=== PATIENT | male | born 1965 | race Caucasian/White ===

== ENCOUNTER 2020-04-26 12:36 | Inpatient (IN) | payer SELFPAY ==
[2020-04-26 13:01] VITALS: BP 148/106; PULSE 91; RESP 18; TEMP 36.6; O2SAT 98; BMI 20.6
[2020-04-26 15:33] LABS: Amphetamines Screen Urine Negative (Negative); Barbiturates Screen Urine Negative (Negative); Benzodiazepines Screen Urine Negative (Negative); Cocaine Screen Urine Negative (Negative); Opiate Screen Urine Negative (Negative); PCP Screen Urine Negative (Negative); THC Screen Urine Negative (Negative)
[2020-04-26] MEDS: folic acid 1 MG, multivitamin inj 10 ML, thiamine 100 MG in sodium chloride 0.9% 1,000 ML 252.8 MG IV (15:34)
[2020-04-26 15:36] LABS: Basophils % 0.6 %; Eosinophils % 0.3 %; Hemoglobin 16.6 g/dL (11.7-16.6); Lymphocytes # 1.6 10^3/uL (0.8-4.8); Lymphocytes % 23.7 %; Mean Corpuscular HGB Conc 33.2 g/dL (30.0-36.0); Mean Corpuscular Hemoglobin 32.5 pg (28.0-34.0); Mean Platelet Volume 11.2 fL (7.4-10.4); Monocytes # 0.4 10^3/uL (0.2-0.9); Monocytes % 6.1 %; Neutrophils # 4.67 10^3/uL (1.8-7.7); Neutrophils % 69.2 %; Nucleated Red Blood Cells % 0 %; Platelet Count 147 10^3/cmm (130-400); White Blood Count 6.8 10^3/uL (4.0-10.0)
[2020-04-26 15:37] LABS: Add Urine Microscopic? YES; Bilirubin Urine Neg (NEGATIVE); Blood Urine 2+ (Negative); Glucose Urine UA Norm (Normal); Ketones Urine 1+ (Negative); Leukocyte Esterase Urine Negative (Negative); Nitrate Urine Negative (Negative); Protein Urine Neg (Negative); Urine Appearance Clear (CLEAR); Urine Color Yellow (Yellow); Urobilinogen Urine 1 mg/dL (Negative); pH Urine 7 (5-7)
[2020-04-26 15:38] LABS: RBC Urine 25-40 /hpf (0-2)
[2020-04-26 15:39] LABS: Add Urine Culture? Yes; Bacteria Urine TRACE; Mucus Urine TRACE; Squamous Epithelial Cell Urine 0-4 (0-5); Transitional Epi Cells Urine 0-4 /hpf; WBC Urine 0-4 /hpf (0-5)
[2020-04-26 15:58] LABS: Alanine Aminotransferase 18 U/L (0-41); Albumin Level 4.1 g/dL (3.5-5.2); Alkaline Phosphatase 118 IU/L (40-130); Aspartate Amino Transferase 30 U/L (0-40); Blood Urea Nitrogen 17 mg/dL (6-20); Carbon Dioxide 26 mmol/L (22-29); Chloride 100 mmol/L (98-107); Globulin 2.7 g/dL (1.3-4.6); Glomerular Filtration Rate 140.9 mL/min (90-130); Glucose 114 mg/dL (65-115); Lipase 24 U/L (13-60); Osmolality Calculated 283 mOsm/kg (285-295); Sodium 138 mmol/L (136-145); Total Bilirubin 0.8 mg/dL (0.15-1.2); Total Protein 6.8 g/dL (6.6-8.7)
--- NOTE | 2020-04-26 15:59 | ED_ITS ---
HPI - Alcohol General: Chief Complaint: Alcohol Stated Complaint: detox Time Seen by Provider: 04/26/20 14:28 Source: patient Mode of arrival: ambulatory Limitations: no limitations History of Present Illness: HPI narrative: Patient is a chronic alcoholic and drinks fireball all day every day according to him. He states that he however wishes to quit alcohol and would like some help with that. He has quit cold turkey and his last drink was around 2 AM this morning. He is not having symptoms that he thinks are secondary to withdrawal, he is having tremors, nausea, vomiting, abdominal pain. I just before I saw him he had a single episode of watery stools. MD complaint: alcohol withdrawal, alcohol dependence and desires rehab Last drink: Hours (ago) (at 0200) Chronic alcohol use: Yes Associated symptoms: Reports abdominal pain, depression, nausea and vomiting; Deny diaphoresis, hematemesis, involuntary movements, melena, seizure-like activity, suicidal ideation or syncope Treatments prior to arrival: none Review of Systems General: Reports: 10 or more systems reviewed and unremarkable except in HPI and below Const: Denies: diaphoresis Eyes: Denies: change in vision or blurry vision ENMT: Denies: throat pain, enlarged tonsils, odynophagia, hoarseness, mouth pain or swelling of lips/tongue Card: Denies: syncope Resp: Denies: dyspnea, productive cough or non-productive cough GI: Reports: abdominal pain, nausea and vomiting; Denies: hematemesis or melena : Denies: flank pain, dysuria, urinary frequency, urinary urgency or urinary hesitancy Musc: Denies: neck pain, back pain or extremity swelling Skin/Breast: Denies: rash, pruritus or erythema Neuro: Denies: seizure-like activity or involuntary movements Psych: Reports: depression; Denies: suicidal ideation Endo: Denies: polyuria, polydipsia or tired all the time Physical Exam Const: COMMON NORMALS: no acute distress, average body habitus, patient oriented x3, no limitations, healthy appearing, alert and well nourished HENMT: COMMON NORMALS: normocephalic, atraumatic and moist oral mucous membranes HEAD & SCALP: normocephalic and atraumatic Neck/C-Spine: COMMON NORMALS: no meningeal signs and no JVD Resp: COMMON NORMALS: normal respiratory effort, No retractions, No use of accessory muscles, clear to auscultation bilaterally and percussion normal AUSCULTATION: clear to auscultation bilaterally PERCUSSION: percussion normal Cardio: COMMON NORMALS: no JVD, regular rate, regular rhythm, S1 normal heart sound present, S2 normal heart sound present, No gallops present (Cardio), No clicks present (Cardio), No murmurs present (Cardio), No rub (Cardio) and Peripheral pulses 2+ throughout RATE: regular rate RHYTHM: regular rhythm HEART SOUNDS: S1 normal heart sound present and S2 normal heart sound present PERIPHERAL PULSES: Peripheral pulses 2+ throughout GI: COMMON NORMALS: Normal to inspection, nondistended, normoactive bowel sounds present, Soft to palpation, non-tender, No hepatosplenomegaly present, no masses and no bruits PALPATION: Yes Soft to palpation and Yes No hepatosplenomegaly present Extremity: COMMON NORMALS: normal to inspection, full ROM, capillary refill normal, no calf tenderness and no pedal edema Neuro: COMMON NORMALS: patient oriented x3 SENSORIUM/ORIENTATION: Yes alert MENINGEAL SIGNS: Yes no meningeal signs Skin: COMMON NORMALS: no rashes or lesions noted, no wounds, turgor normal, no jaundice, no petechiae and no mottling GENERAL SKIN EXAM: no rashes or lesions noted and turgor normal Course ED course: 54-year-old alcoholic gentleman who presents to the emergency department wanting assistance with alcohol abuse. He was medically cleared. No issues in the ED. He was anxious in the ED but otherwise, no issues. He calmed down after he received ativan. Consultations: Consultation #1: Dr. Bryant, Psychiatrist, he kindly accepted the patient to his service Vital Signs: Vital signs: Vital Signs Temperature 97.9 F 04/26/20 13:01 Pulse Rate 99 04/26/20 19:47 Respiratory Rate 18 04/26/20 19:47 Blood Pressure 166/96 04/26/20 19:47 Pulse Oximetry 96 04/26/20 19:47 MDM - Alcohol MDM Narrative: Medical decision making narrative: 54 year old male patient who is an alcoholic and quite drinking early this morning. He was anxious, but not violent. He was medically cleared and admitted to psych for further evaluation. Medical Records: Attestation: I reviewed the patient's medical records. Lab Data: Attestation: I reviewed the patient's lab results. Labs: Lab Results 04/26/20 04/26/20 04/26/20 Range/Units 15:06 15:06 15:20 WBC 6.8 (4.0-10.0) 10^3/ uL RBC 5.10 (4.1-5.3) 10^6/u L Hgb 16.6 (11.7-16.6) g/dL Hct 50.0 (42.0-52.0) % MCV 98.0 H (80-94) fL MCH 32.5 (28.0-34.0) pg MCHC 33.2 (30.0-36.0) g/dL RDW 12.0 L (12.1-15.1) % Plt Count 147 (130-400) 10^3/c mm MPV 11.2 H (7.4-10.4) fL Neut % (Auto) 69.2 % Lymph % (Auto) 23.7 % Cocke % (Auto) 6.1 % Eos % (Auto) 0.3 % Baso % (Auto) 0.6 % Neut # (Auto) 4.67 (1.8-7.7) 10^3/u L Lymph # (Auto) 1.6 (0.8-4.8) 10^3/u L Cocke # (Auto) 0.4 (0.2-0.9) 10^3/u L Eos # (Auto) 0.0 (0.0-0.8) 10^3/u L Baso # (Auto) 0.0 (0.0-0.1) 10^3/u L Nucleated RBC % (a uto) 0 % Nucleated RBCs # 0.0 /100WBC Sodium (136-145) mmol/L Potassium (3.5-5.1) mmol/L Chloride (98-107) mmol/L Carbon Dioxide (22-29) mmol/L Anion Gap (5-19) BUN (6-20) mg/dL Creatinine (0.7-1.2) mg/dL GFR Calculation (90-130) mL/min Glucose (65-115) mg/dL Calculated Osmolal ity (285-295) mOsm/k g Calcium (8.5-10.5) mg/dL Total Bilirubin (0.15-1.2) mg/dL AST (0-40) U/L ALT (0-41) U/L Alkaline Phosphata se (40-130) IU/L Total Protein (6.6-8.7) g/dL Albumin (3.5-5.2) g/dL Globulin (1.3-4.6) g/dL Lipase (13-60) U/L Urine Color Yellow (Yellow) Urine Appearance Clear (CLEAR) Urine pH 7 (5-7) Ur Specific Gravit y 1.010 (1.005-1.030) Urine Protein Neg (Negative) Urine Glucose (UA) Norm (Normal) Urine Ketones 1+ H (Negative) Urine Blood 2+ H (Negative) Urine Nitrate Negative (Negative) Urine Bilirubin Neg (NEGATIVE) Urine Urobilinogen 1 H (Negative) mg/dL Ur Leukocyte Meghna ase Negative (Negative) Urine RBC 25-40 H (0-2) /hpf Urine WBC 0-4 H (0-5) /hpf Ur Squamous Epith Cells 0-4 H (0-5) Ur Transition Epit h Cell 0-4 /hpf Amorphous Sediment Not Reportable Urine Bacteria Trace (NONE) Urine Mucus Trace Salicylates (3-10) mg/dL Urine Opiates Scre en Negative (Negative) ng/mL Acetaminophen (10-30) ug/mL Ur Barbiturates Sc reen Negative (Negative) ng/mL Ur Phencyclidine S crn Negative (Negative) ng/mL Ur Amphetamines Sc reen Negative (Negative) ng/mL U Benzodiazepines Scrn Negative (Negative) ng/mL Urine Cocaine Scre en Negative (Negative) ng/mL U Marijuana (THC) Screen Negative (Negative) ng/mL Ethyl Alcohol (0-10) mg/dL 04/26/20 Range/Units 15:20 WBC (4.0-10.0) 10^3/ uL RBC (4.1-5.3) 10^6/u L Hgb (11.7-16.6) g/dL Hct (42.0-52.0) % MCV (80-94) fL MCH (28.0-34.0) pg MCHC (30.0-36.0) g/dL RDW (12.1-15.1) % Plt Count (130-400) 10^3/c mm MPV (7.4-10.4) fL Neut % (Auto) % Lymph % (Auto) % Cocke % (Auto) % Eos % (Auto) % Baso % (Auto) % Neut # (Auto) (1.8-7.7) 10^3/u L Lymph # (Auto) (0.8-4.8) 10^3/u L Cocke # (Auto) (0.2-0.9) 10^3/u L Eos # (Auto) (0.0-0.8) 10^3/u L Baso # (Auto) (0.0-0.1) 10^3/u L Nucleated RBC % (a uto) % Nucleated RBCs # /100WBC Sodium 138 (136-145) mmol/L Potassium 4.0 (3.5-5.1) mmol/L Chloride 100 (98-107) mmol/L Carbon Dioxide 26 (22-29) mmol/L Anion Gap 16.0 (5-19) BUN 17 (6-20) mg/dL Creatinine 0.6 L (0.7-1.2) mg/dL GFR Calculation 140.9 H (90-130) mL/min Glucose 114 (65-115) mg/dL Calculated Osmolal ity 283 L (285-295) mOsm/k g Calcium 9.0 (8.5-10.5) mg/dL Total Bilirubin 0.8 (0.15-1.2) mg/dL AST 30 (0-40) U/L ALT 18 (0-41) U/L Alkaline Phosphata se 118 (40-130) IU/L Total Protein 6.8 (6.6-8.7) g/dL Albumin 4.1 (3.5-5.2) g/dL Globulin 2.7 (1.3-4.6) g/dL Lipase 24 (13-60) U/L Urine Color (Yellow) Urine Appearance (CLEAR) Urine pH (5-7) Ur Specific Gravit y (1.005-1.030) Urine Protein (Negative) Urine Glucose (UA) (Normal) Urine Ketones (Negative) Urine Blood (Negative) Urine Nitrate (Negative) Urine Bilirubin (NEGATIVE) Urine Urobilinogen (Negative) mg/dL Ur Leukocyte Meghna ase (Negative) Urine RBC (0-2) /hpf Urine WBC (0-5) /hpf Ur Squamous Epith Cells (0-5) Ur Transition Epit h Cell /hpf Amorphous Sediment Urine Bacteria (NONE) Urine Mucus Salicylates < 0.3 L (3-10) mg/dL Urine Opiates Scre en (Negative) ng/mL Acetaminophen < 5.0 L (10-30) ug/mL Ur Barbiturates Sc reen (Negative) ng/mL Ur Phencyclidine S crn (Negative) ng/mL Ur Amphetamines Sc reen (Negative) ng/mL U Benzodiazepines Scrn (Negative) ng/mL Urine Cocaine Scre en (Negative) ng/mL U Marijuana (THC) Screen (Negative) ng/mL Ethyl Alcohol < 10 (0-10) mg/dL Discharge Plan Discharge Patient Disposition: Admitted As Inpatient Admit Provider: Manny Bryant Clinical Impression: Alcohol withdrawal syndrome Condition: Stable Interventions: ED Discharge Assessment Last Done: 04/26/20 19:47 ED Charges Last Done: 04/26/20 19:47 Discharge Date/Time: 04/26/20 19:48 Coding Level of Care Code ED Field Contact Person for Chg Fwd Exam Comprehensive
[2020-04-26 16:03] LABS: Acetaminophen < 5.0 ug/mL (10-30); Alcohol Level < 10 mg/dL (0-10); Salicylate < 0.3 mg/dL (3-10)
[2020-04-26] MEDS: LORazepam 2 mg Tablet PO (18:10)
[2020-04-26 18:36] VITALS: BP 164/99; PULSE 18; RESP 76; O2SAT 96
[2020-04-26 18:41] VITALS: BP 164/99; PULSE 76; RESP 18; O2SAT 96
[2020-04-26 19:47] VITALS: BP 166/96; PULSE 99; RESP 18; O2SAT 96
[2020-04-26 21:11] VITALS: BP 130/89; PULSE 91; RESP 16; TEMP 36.7; O2SAT 96
[2020-04-26] MEDS: hyDROXYzine 25 mg Capsule 50 MG PO (21:27)
[2020-04-26] MEDS: trazodone 50 mg Tablet PO (21:27)
[2020-04-27 00:06] VITALS: RESP 16
[2020-04-27] MEDS: hyDROXYzine 25 mg Capsule 50 MG PO ×2 (08:07→21:49)
--- NOTE | 2020-04-27 08:07 | PC.NURSE ---
PRN VISTARIL VISTARIL 50MG PO PER PATIENT C/O ANXIETY. WILL CONTINUE TO MONITOR FOR MEDICATION EFFECTIVENESS.
--- NOTE | 2020-04-27 09:00 | PC.NURSE ---
PRN VISTARIL FOLLOW UP MEDICATION EFFECTIVE. NO FURTHER C/O ANXIETY.
--- NOTE | 2020-04-27 09:01 | PM.NHP ---
Providers/Chief Complaint Admitting Physician: Manny Bryant Referral Source: [facility] [place] [facility] Chief Complaint: detox HPI NPU History of Present Illness Han Hummel is a 54 year old male who is a chronic alcoholic and drinks highballs all day, every day , according to him. However, he wants to sober up and would like some help. He quit cold turkey prior to coming in, his last drink being around 2 AM the morning he came to the ER. He has symptoms that he thinks are secondary to withdrawal, including tremors, nausea, vomiting, abdominal pain. He had a single episode of watery stools while in the emergency room. Review of Systems Narrative: General: Reports: 10 or more systems reviewed and unremarkable except in HPI and below Const: Denies: diaphoresis Eyes: Denies: change in vision or blurry vision ENMT: Denies: throat pain, enlarged tonsils, odynophagia, hoarseness, mouth pain or swelling of lips/tongue Card: Denies: syncope Resp: Denies: dyspnea, productive cough or non-productive cough GI: Reports: abdominal pain, nausea, vomiting and diarrhea. Denies: hematemesis or melena : Denies: flank pain, dysuria, urinary frequency, urgency or hesitancy Musc: Denies: neck pain, back pain or extremity swelling Skin/Breast: Denies: rash, pruritus or erythema Neuro: Denies: seizure-like activity or involuntary movements Psych: Reports: depression; Denies: suicidal or homicidal ideation, plan or intent. Endo: Denies: polyuria, polydipsia or chronic fatigue Meds NPU Home Medications Medication Instructions Recorded Confirmed Last Taken Type ibuprofen 600 mg PO PRN 04/26/20 04/26/20 Unknown History Allergies Allergy/AdvReac Type Severity Reaction Status Date / Time No Known Allergies Allergy Verified 04/26/20 14:36 Mental Status Exam MSE Comments: This is a 54-year-old male of mixed ethnicity who presents at his stated age. He is tremulous but clean and neat. Mood is clearly anxious and dysphoric. He is having a difficult time in the initial stages of detox. Affect is flat but appropriate to his situation. Thought processes are clear, coherent and free of racing, blocking or looseness of association. Speech is of normal rate and volume, without dysarthria, aprosody or pressure. Insight and judgment are adequate for safety. Cognitive functions appear to be intact although it is difficult to test them in his current condition. He denies suicidal or homicidal ideation plan or intent. Vitals/I&O/Wt Last Vital Signs Temp 98.1 F 04/26/20 21:11 Pulse 91 04/26/20 21:11 Resp 16 04/27/20 00:06 BP 130/89 04/26/20 21:11 Pulse Ox 96 04/26/20 21:11 04/26/20 04/27/20 04/27/20 23:59 07:59 15:59 Intake Total 783.68 Balance 783.68 Weight last 48 hrs Weight 165 lb Physical Exam Narrative: EXAM NARRATIVE: Const: no acute distress, average body habitus, patient oriented x3, no limitations, healthy appearing, alert and well nourished HENMT: normocephalic, atraumatic and moist oral mucous membranes HEAD & SCALP: normocephalic and atraumatic Neck/C-Spine: no meningeal signs, no thyromegaly, no JVD Resp: normal respiratory effort, No retractions, No use of accessory muscles, clear to auscultation bilaterally and percussion normal Cardio: no JVD, regular rate, regular rhythm, S1 normal heart sound present, S2 normal heart sound present, No gallops present (Cardio), No clicks present (Cardio), No murmurs present (Cardio), No rub (Cardio) and Peripheral pulses 2+ throughout RATE: regular rate RHYTHM: regular rhythm PERIPHERAL PULSES: Peripheral pulses 2+ throughout GI: Normal to inspection, nondistended, normoactive bowel sounds present, Soft to palpation, non-tender, No hepatosplenomegaly present, no masses and no bruits Extremity: normal to inspection, full ROM, capillary refill normal, no calf tenderness and no pedal edema Neuro: patient oriented x3 SENSORIUM/ORIENTATION: alert no meningeal signs Skin: no rashes or lesions noted, no wounds, turgor normal, no jaundice, no petechiae and no mottling Data NPU : 04/26/20 15:20 04/26/20 15:20 A&P Assessment and plan (1) Alcohol withdrawal syndrome: Detox is underway. Status: Acute Qualifiers: Complication of substance-induced condition: uncomplicated Qualified Code(s): F10.230 - Alcohol dependence with withdrawal, uncomplicated (2) Major depressive disorder, single episode, unspecified: We will get detox accomplished and get her bearings with respect to this problem. It may resolve once he enters recovery. We shall see Status: Acute Involuntary Hold Information 96 Hour Hold: 96 Hour Involuntary Admission: No Attestations NPU Medical Necessity Statement*: I anticipate 5-7 midnights additional hospitalization Time Spent in Patient Care: Greater than 35 minutes (>than 50% of time spent in counselling and/or direct pt care on unit). Chart review. Consultation with the ER staff, the NPU nursing and operations planner. Patient interview and examination. Orders. 60 minutes Coding Level of Care Code Acute Convenience Store Clerk for Judy Jalloh Diagnoses Alcohol withdrawal syndrome F10.230 Complication of substance-induced condition: uncomplicated Major depressive disorder, single episode, unspecified F32.9
[2020-04-27] MEDS: loperamide 2 mg Capsule PO ×2 (09:32→15:36)
[2020-04-27] MEDS: LORazepam 2 mg Tablet PO ×2 (09:45→15:36)
--- NOTE | 2020-04-27 09:45 | PC.NURSE ---
PRN ATIVAN ATIVAN 2MG PO PER CIWA SCORE OF 18. WILL CONTINUE TO MONITOR FOR MEDICATION EFFECTIVENESS.
--- NOTE | 2020-04-27 10:40 | PC.NURSE ---
PRN ATIVAN FOLLOW UP MEDICATION EFFECTIVE. CIWA SCORE OF 3.
[2020-04-27 13:49] VITALS: BP 122/85; PULSE 72; RESP 18; TEMP 36.7; O2SAT 100
--- NOTE | 2020-04-27 15:36 | PC.NURSE ---
PRN Ativan Ativan 2mg po given per CIWA score of 11
--- NOTE | 2020-04-27 16:30 | PC.NURSE ---
PRN Ativan follow up Patient anxiety decreased, medication effective
[2020-04-27] MEDS: OLANZapine 5 mg ODT PO (17:57)
--- NOTE | 2020-04-27 17:57 | PC.NURSE ---
PRN Zyprexa Zydis Zyprexa Zydis 5mg PRN give PO for patient complaint of anxiety and agitation.
--- NOTE | 2020-04-27 17:59 | PC.NURSE ---
Ativan PRN Ativan 2mg PO given per CIWA score of 11
[2020-04-27 21:12] VITALS: BP 112/68; PULSE 74; RESP 74; TEMP 37.3; O2SAT 98
[2020-04-27] MEDS: trazodone 50 mg Tablet PO (21:49)
[2020-04-28 06:00] VITALS: BP 147/96; PULSE 94; RESP 19; TEMP 36.7; O2SAT 95
[2020-04-28] MEDS: loperamide 2 mg Capsule PO ×2 (08:58→16:55)
[2020-04-28] MEDS: folic acid 1 mg Tablet PO (08:58)
[2020-04-28] MEDS: multivitamin therapeutic Tablet 1 TAB PO (08:58)
[2020-04-28] MEDS: thiamine 100 mg Tablet PO (08:58)
[2020-04-28] MEDS: hyDROXYzine 25 mg Capsule 50 MG PO ×2 (09:19→21:31)
--- NOTE | 2020-04-28 09:20 | PC.NURSE ---
PRN Vistaril Patient c/o of moderate anxiety. Patient given 50mg PO Vistaril. Will monitor for effectiveness.
--- NOTE | 2020-04-28 10:00 | PC.NURSE ---
Follow-up Vistaril Patient shows decreased anxiety and states Vistaril did help. Medication effective.
--- NOTE | 2020-04-28 10:45 | PC.NURSE ---
Follow-up Zyprexa Patient stated he felt less anxious and that Zyprexa works better for him. Medication effective.
[2020-04-28] MEDS: OLANZapine 5 mg ODT PO ×2 (10:56→21:32)
--- NOTE | 2020-04-28 10:59 | PC.NURSE ---
PRN Zyprexa Patient complaint of anxiety and agitation. Zyprexa Zydis 5mg PRN given PO. Will monitor for effectiveness.
--- NOTE | 2020-04-28 12:53 | P.PN_ITS ---
Subjective NPU Subjective: Interval history: Patient says he is depressed. I do not doubt it. We discussed antidepressant pharmacotherapy and I will start him on fluoxetine 20 mg/day, with likely titration by my successor. Medications: Reviewed: Yes Medication Review Details: Current Medications Acetaminophen (Tylenol) 650 mg PO Q4H PRN PRN Reason: MILD PAIN Benztropine Mesylate (Cogentin) 1 mg PO BID PRN PRN Reason: Mild Extrapyramidal symptoms Camphor/Menthol/Phenol (Blistex) 1 applic TOPICAL Q1H PRN PRN Reason: DRYNESS Diphenhydramine HCl (Benadryl) 50 mg IM ONCE PRN PRN Reason: Severe Extrapyramidal Symptoms Diphenhydramine HCl (Benadryl) 50 mg IM Q4H PRN PRN Reason: Severe Aggression Fluoxetine HCl (Prozac) 20 mg PO NOW ONE Stop: 04/28/20 13:01 Fluoxetine HCl (Prozac) 20 mg PO DAILY [facility] Folic Acid (Folic Acid) 1 mg PO DAILY [facility] Last Admin: 04/28/20 08:58 Dose: 1 mg Documented by: Haloperidol (Haldol) 5 mg PO Q4H PRN PRN Reason: AGITATION Haloperidol Lactate (Haldol Inj) 5 mg IM Q4H PRN PRN Reason: Severe Aggression Hydroxyzine Pamoate (Vistaril) 50 mg PO Q6H PRN PRN Reason: ANXIETY Last Admin: 04/28/20 09:19 Dose: 50 mg Documented by: Loperamide HCl (Imodium Capsule) 2 mg PO Q6H PRN PRN Reason: DIARRHEA Last Admin: 04/28/20 08:58 Dose: 2 mg Documented by: Lorazepam (Ativan) 2 mg IM Q4H PRN PRN Reason: Severe Aggression Lorazepam (Ativan) 2 mg IM PROTOCOL PRN; Protocol PRN Reason: ALCOWD Lorazepam (Ativan) 2 mg PO PROTOCOL PRN; Protocol PRN Reason: WITHDRAWAL Last Admin: 04/27/20 15:36 Dose: 2 mg Documented by: Multivitamins Therapeutic (Multivitamin Tab) 1 tab PO DAILY [facility] Last Admin: 04/28/20 08:58 Dose: 1 tab Documented by: Nicotine (Nicoderm 21 Mg Patch) 1 patch TRANSDERMA DAILY PRN PRN Reason: NICOTINE WITHDRAWAL Nicotine Polacrilex (Nicorette) 2 mg BUCCAL Q2H PRN PRN Reason: NICOTINE WITHDRAWAL Olanzapine (Zyprexa Zydis) 5 mg PO Q4H PRN PRN Reason: Agitation/Psychosis Last Admin: 04/28/20 10:56 Dose: 5 mg Documented by: Ondansetron HCl (Zofran) 4 mg PO Q6H PRN PRN Reason: NAUSEA AND VOMITING Thiamine Mononitrate (Vitamin B-1) 100 mg PO DAILY [facility] Last Admin: 04/28/20 08:58 Dose: 100 mg Documented by: Mental Status Exam MSE Comments: This is a 54-year-old male of mixed ethnicity who presents at his stated age. He is tremulous but clean and neat. Mood is clearly anxious and dysphoric. He is having a difficult time in the initial stages of detox. Affect is slightly agitated but appropriate to his situation. He sometimes is tearful. Thought processes are clear, coherent and free of racing, blocking or looseness of association. Speech is of normal rate and volume, without dysarthria, aprosody or pressure. Insight and judgment are adequate for safety. Cognitive functions appear to be intact, although it is difficult to test them in his current condition. He denies suicidal or homicidal ideation plan or intent. Vitals/I&O/Wt Last Vital Signs Temp 98.0 F 04/28/20 06:00 Pulse 94 04/28/20 06:00 Resp 19 H 04/28/20 06:00 BP 147/96 04/28/20 06:00 Pulse Ox 95 04/28/20 06:00 Weight last 48 hrs Weight 165 lb Data NPU : 04/26/20 15:20 04/26/20 15:20 Micro: Microbiology 04/26/20 15:06 Urine Culture - Final Urine,Clean Catch Microbiology 04/26/20 15:06 Urine,Clean Catch Urine Culture - Final Involuntary Hold Information 96 Hour Hold: 96 Hour Involuntary Admission: No Attestations NPU Medical Necessity Statement*: I anticipate 4-5 midnights additional hospital Time Spent in Patient Care: Greater than 35 minutes (>than 50% of time spent in counselling and/or direct pt care on unit) . Coding Level of Care Code Acute Sprayer Operator for Judy Jalloh
[2020-04-28] MEDS: fluoxetine 20 mg Capsule PO (13:41)
[2020-04-28 14:00] VITALS: BP 117/81; PULSE 85; RESP 18; TEMP 37.1; O2SAT 97
[2020-04-28] MEDS: LORazepam 2 mg Tablet PO ×2 (14:56→21:32)
--- NOTE | 2020-04-28 15:00 | PC.NURSE ---
PRN Ativan Patient came to nurse's station complaining of mild headache, anxiety, and sweating. CIWA score 11. 2mg PO Ativan given. Will monitor for effectiveness.
[2020-04-28] MEDS: loperamide 2 mg Capsule 4 MG PO (17:01)
[2020-04-28 20:02] VITALS: BP 113/80; PULSE 81; RESP 18; TEMP 36.7; O2SAT 97
[2020-04-29 06:00] VITALS: BP 133/82; PULSE 69; RESP 17; TEMP 36.7; O2SAT 92
[2020-04-29] MEDS: multivitamin therapeutic Tablet 1 TAB PO (08:20)
[2020-04-29] MEDS: folic acid 1 mg Tablet PO (08:20)
[2020-04-29] MEDS: thiamine 100 mg Tablet PO (08:20)
[2020-04-29] MEDS: fluoxetine 20 mg Capsule PO (08:20)
[2020-04-29] MEDS: loperamide 2 mg Capsule 4 MG PO ×3 (08:39→21:04)
--- NOTE | 2020-04-29 08:39 | PC.NURSE ---
PRN IMODIUM 4 MG GIVEN PO PER PT C/O LOOSE STOOL
[2020-04-29] MEDS: hyDROXYzine 25 mg Capsule 50 MG PO ×3 (10:32→20:24)
--- NOTE | 2020-04-29 10:32 | PC.NURSE ---
PRN VISTARIL 50 MG GIVEN PO PER PT C/O STATED ANXIETY. WILL CONT TO MONITOR
--- NOTE | 2020-04-29 12:18 | PM.NPN ---
Subjective NPU Subjective: Interval history: Han presents today reporting that life has been very stressful. He has been plagued by a history of overdose by one brother and suicide of another. He has been struggling with depression and his addiction for some time and he is working on getting himself program and really getting his life in order. He reports that he spoke to [facility] and that they are going to talk to him again tomorrow morning to determine if they have a spot for him. He reports he is very invested in going into treatment and at this point he doesn't appear to have anywhere to go. We discussed the risks benefits alternatives of increasing his Prozac and he understood and agreed to proceed as documented in his note. He is struggling with sleep and reports eating okay. Mental Status Exam MSE Comments: This is an underweight white male with adequate respiratory contact. No abnormal movements. Cooperative with exam in mild distress. Speech was decreased rate and volume. Mood described as depressed, affect congruent and tearful. Thought process organized. Thought content: Patient endorsed some suicidal thoughts, but denied homicidal ideation, he denied any auditory or visual examinations. There were no delusions reported or noted. Attention and concentration were intact and memory appeared reliable but none were formally tested. He is alert and oriented ?3. Insight and judgment appear fair. Impulse control is limited. Vitals/I&O/Wt Last Vital Signs Temp 98.0 F 04/29/20 22:00 Pulse 68 04/29/20 22:00 Resp 16 04/29/20 22:00 BP 141/84 04/29/20 22:00 Pulse Ox 98 04/29/20 22:00 Data NPU : 04/26/20 15:20 04/26/20 15:20 A&P Assessment and plan (1) Major depressive disorder, single episode, unspecified: Status: Acute (2) Alcohol withdrawal syndrome: Status: Acute Qualifiers: Complication of substance-induced condition: uncomplicated Qualified Code(s): F10.230 - Alcohol dependence with withdrawal, uncomplicated (3) Alcohol use disorder: Status: Acute Additional A&P Information This is a 54-year-old white male with major depressive disorder, alcohol use disorder and a significant genetic loading for addiction and mental health issues who presents depressed and wanting assistance with his addiction. 1. Continue current medication, except: Increase Prozac to 40 mg by mouth every morning. 2. Continue every 15 minute checks for safety. 3. Encourage individual, group and milieu therapy. 4. Encourage sober living follow-up treatment at the highest level of care to which he is willing to commit. Involuntary Hold Information 96 Hour Hold: 96 Hour Involuntary Admission: No Attestations NPU Medical Necessity Statement*: Inpatient hospitalization is medically necessary and the clinically appropriate intervention at this time. We will monitor medications and make changes as indicated. Likely length of stay 1-3 days. Coding Level of Care Code Acute [employer] Solutions Architect for [facility] Fwd Diagnoses Major depressive disorder, single episode, unspecified F32.9 Alcohol withdrawal syndrome F10.230 Complication of substance-induced condition: uncomplicated Alcohol use disorder
[2020-04-29 14:00] VITALS: BP 131/95; PULSE 78; RESP 18; TEMP 36.6; O2SAT 96
--- NOTE | 2020-04-29 14:43 | PC.NURSE ---
PRN IMODIUM 4 MG GIVEN PO PER PT C/O STATED LOOSE STOOL. WILL CONT TO MONITOR
--- NOTE | 2020-04-29 18:38 | PC.NURSE ---
PRN VISTARIL 50 MG GIVEN PO PER PT C/O STATED ANXIETY. PT HAS BEEN MED SEEKING, WILL CONT TO MONITOR
--- NOTE | 2020-04-29 20:26 | PC.NURSE ---
Prn visteril 50mg PO given for anxiety. will continue to minitor the patient
--- NOTE | 2020-04-29 21:05 | PC.NURSE ---
Patient is anxious and wringing his hands. He has been pacing and has already received visteril 50 mg PO about 45,min ago.
[2020-04-29 22:00] VITALS: BP 141/84; PULSE 68; RESP 16; TEMP 36.7; O2SAT 98
[2020-04-29] MEDS: OLANZapine 5 mg ODT PO (22:00)
--- NOTE | 2020-04-29 22:01 | PC.NURSE ---
prn given zyprexa zydis 5mg po for anxiety not relieved by visteril 50mg po
--- NOTE | 2020-04-29 23:54 | PC.NURSE ---
Pt reaction to Zyprexa zydis 5mg PO made this patient hyper and he is still wringing his hands
[2020-04-30] MEDS: LORazepam 2 mg Tablet PO (00:04)
--- NOTE | 2020-04-30 00:05 | PC.NURSE ---
0004: PRN ativan 2mg po for withdrawl symptoms even thought the CIWA protocol is up. Patient has blood pressure of146/90 with HR of 83. He is wringing his hands and increasingly anxious after receiving zyprexa zydis 5mg PO and visteril 50mg po. The patient became increasingly agitated with the zyprexa zydis. He is pacing the floor and is visibly anxious. Will report to the doctor in the morning and request reinstitution of CIWA protocol or to request another means of treatment for this patient. Will continue to monitor this patient.
[2020-04-30 06:00] VITALS: BP 113/74; PULSE 94; RESP 17; TEMP 36.2; O2SAT 97
[2020-04-30] MEDS: fluoxetine 20 mg Capsule 40 MG PO (08:02)
[2020-04-30] MEDS: folic acid 1 mg Tablet PO (08:03)
[2020-04-30] MEDS: multivitamin therapeutic Tablet 1 TAB PO (08:03)
[2020-04-30] MEDS: thiamine 100 mg Tablet PO (08:03)
[2020-04-30] MEDS: hyDROXYzine 25 mg Capsule 50 MG PO ×3 (08:03→20:57)
--- NOTE | 2020-04-30 08:03 | PC.NURSE ---
PRN VISTARIL 50 MG GIVEN PO PER PT C/O STATED ANXIETY
[2020-04-30] MEDS: loperamide 2 mg Capsule 4 MG PO ×3 (08:14→21:39)
--- NOTE | 2020-04-30 08:14 | PC.NURSE ---
PRN IMODIUM 4 MG GIVEN PO PER PT C/O STATED LOOSE STOOL
[2020-04-30 13:20] VITALS: BP 108/76; PULSE 106; RESP 18; TEMP 36.8; O2SAT 97
[2020-04-30] MEDS: nicotine 21 mg Patch 1 PATCH TRANSDERMA (13:41)
--- NOTE | 2020-04-30 13:42 | PM.NPN ---
Subjective NPU Subjective: Interval history: Rashaad presents today reporting that he is supposed to have his meeting with [facility], and he is not sure how it is going to go. He still continues to report that he is having anxiety, and we discussed the fact that that is fairly common with alcohol withdrawal. We agreed that we would keep an eye on his withdrawal, work with him on his current medication, and hopefully be in a position to get him to [facility] as soon as they are willing to receive him, if they accept him. He was still fairly sad in thoughts about his family and the situation he finds himself in. But he was optimistic about the phone appointment later on. Mental Status Exam MSE Comments: This is an underweight white male with adequate respiratory contact. No abnormal movements. Cooperative with exam in mild distress. Speech was decreased rate and volume. Mood described as depressed and anxious, affect congruent and tearful. Thought process organized. Thought content: Patient endorsed some suicidal thoughts, but denied homicidal ideation, he denied any auditory or visual examinations. There were no delusions reported or noted. Attention and concentration were intact and memory appeared reliable but none were formally tested. He is alert and oriented ?3. Insight and judgment appear fair. Impulse control is limited. Vitals/I&O/Wt Last Vital Signs Temp 97.7 F 04/30/20 22:00 Pulse 82 04/30/20 22:00 Resp 18 04/30/20 22:00 BP 115/84 04/30/20 22:00 Pulse Ox 96 04/30/20 22:00 Data NPU : 04/26/20 15:20 04/26/20 15:20 A&P Additional A&P Information (1) Major depressive disorder, single episode, unspecified: (2) Alcohol withdrawal syndrome: (3) Alcohol use disorder: This is a 54-year-old white male with major depressive disorder, alcohol use disorder and a significant genetic loading for addiction and mental health issues who presents depressed and wanting assistance with his addiction. 1. Continue current medication. 2. Continue every 15 minute checks for safety. 3. Encourage individual, group and milieu therapy. 4. Encourage sober living follow-up treatment at the highest level of care to which he is willing to commit. Involuntary Hold Information 96 Hour Hold: 96 Hour Involuntary Admission: No Attestations NPU Medical Necessity Statement*: Inpatient hospitalization is medically necessary and the clinically appropriate intervention at this time. We will monitor medications and make changes as indicated. Likely length of stay 1-3 days. Coding Level of Care Code Acute Insulation Blanket Maker for Judy Jalloh
--- NOTE | 2020-04-30 15:13 | PC.NURSE ---
PRN VISTARIL & IMODIUM VISTARIL 50 MG GIVEN PO PER PT C/O ANXIETY. IMODIUM 4 MG GIVEN PO PER PT C/O LOOSE STOOLS. NO OUTWARD S/S OF ANXIETY NOTED. PT COOPERATIVE WITH CARE.
--- NOTE | 2020-04-30 20:58 | PC.NURSE ---
Addendum entered by Sander Worley LPN 04/30/20 22:02: PRN MEDICATION EFFECTIVE. NO FURTHER C/O ANXIETY. WILL CONTINUE TO MONITOR. Original Note: PRN VISTRAIL PT REQUESTING ANXIETY MEDICATION. ADMINISTERED VISTARIL 50 MG PO. WILL MONITOR FOR MEDICATION EFFECTIVENESS.
--- NOTE | 2020-04-30 21:39 | PC.NURSE ---
PRN IMODIUM PT REQUESTING ANTI-DIARRHEA. ADMINISTERED IMODIUM 4MG. WILL MONITOR FOR MEDICATION EFFECTIVENESS.
[2020-04-30 22:00] VITALS: BP 115/84; PULSE 82; RESP 18; TEMP 36.5; O2SAT 96
[2020-04-30] MEDS: OLANZapine 5 mg ODT PO (22:11)
--- NOTE | 2020-04-30 22:11 | PC.NURSE ---
Addendum entered by Sander Worley LPN 05/01/20 01:10: LATE ENTRY PRN ZYPREXA FOLLOW-UP 04/30/20 @ 2311 PT RESTING IN BED W/EYES CLOSED. RESPIRATIONS EVEN AND UNLABORED. WILL CONTINUE TO MONITOR. Original Note: PRN ZYPREXA PT STARTED WALKING UP AND DOWN THE HALLS AND WHEN THIS NURSE ASKED HIM IF EVERYTHING WAS OK HE STATED HE WAS FEELING KEYED UP. ADMINISTERED ZYPREXA ZYDIS 5 MG SUBLINGUAL. WILL MONITOR FOR MEDICATION EFFECTIVENESS.
[2020-05-01 06:00] VITALS: BP 122/90; PULSE 98; RESP 16; TEMP 36.5; O2SAT 95
[2020-05-01] MEDS: hyDROXYzine 25 mg Capsule 50 MG PO ×3 (06:54→20:41)
--- NOTE | 2020-05-01 06:58 | PC.NURSE ---
PRN VISTARIL ADMINISTERED VISTARIL 50 MG PO FOR PT C/O ANXIETY. WILL MONITOR FOR MEDICATION EFFECTIVENESS.
[2020-05-01] MEDS: fluoxetine 20 mg Capsule 40 MG PO (08:14)
[2020-05-01] MEDS: folic acid 1 mg Tablet PO (08:15)
[2020-05-01] MEDS: thiamine 100 mg Tablet PO (08:15)
[2020-05-01] MEDS: multivitamin therapeutic Tablet 1 TAB PO (08:15)
[2020-05-01] MEDS: loperamide 2 mg Capsule 4 MG PO ×2 (08:16→16:20)
--- NOTE | 2020-05-01 08:16 | PC.NURSE ---
PRN IMODIUM 4 MG GIVEN PO PER PT C/O STATED LOOSE STOOLS.
[2020-05-01] MEDS: nicotine 2 mg Gum BUCCAL (09:36)
--- NOTE | 2020-05-01 13:58 | PC.NURSE ---
PRN VISTARIL 50 MG GIVEN PO PER PT C/O STATED ANXIETY. NO OUTWARD S/S OF ANXIETY NOTED, PT WATCHING TV IN THE DAY ROOM. APPEARS VERY COMFORTABLE. WILL CONT TO MONITOR.
[2020-05-01 14:00] VITALS: BP 127/79; PULSE 83; RESP 18; TEMP 36.8
--- NOTE | 2020-05-01 14:57 | P.PN_ITS ---
Subjective NPU Subjective: Interval history: Rashaad presents today reporting that he feels like the interview with [facility] went really well. He reported that they talked about a program and he had a printout/booklet for the program, which lasts anywhere from twelve to eighteen months. He reports that he hopes that he is well enough that they would see him as a twelve month option but, at this point, he feels like anything is better than what he has been doing recently, and this presents a great opportunity for him to really get well and focus on himself for this period of time. He reports that his hope is that they will call and take him by Sunday; but he reports that they said they would send an email to our treatment team with their acceptance or refusal of him. But he feels like he answered the questions well and that it was a good interview. He reports that he feels much better and his anxiety has dropped off dramatically. Overall, we discussed him utilizing one of two medications for any sleep difficulty; he had not realized that there were medications available on an as needed basis. 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 He reports that he is eating fine but still not sleeping that great. Mental Status Exam MSE Comments: This is an underweight white male with adequate respiratory contact. No abnormal movements. Cooperative with exam in no acute distress. Speech was more normal rate and volume. Mood described as better, affect congruent Thought process organized. Thought content: Patient edenied suicidal or homicidal ideation, he denied any auditory or visual examinations. There were no delusions reported or noted. Attention and concentration were intact and memory appeared reliable but none were formally tested. He is alert and oriented ?3. Insight and judgment appear fair, and improving. Impulse control is improving. Vitals/I&O/Wt Last Vital Signs Temp 98.2 F 05/01/20 22:00 Pulse 101 H 05/01/20 22:00 Resp 18 05/01/20 22:00 BP 111/75 05/01/20 22:00 Pulse Ox 96 05/01/20 22:00 Data NPU : 04/26/20 15:20 04/26/20 15:20 A&P Additional A&P Information (1) Major depressive disorder, single episode, unspecified: (2) Alcohol withdrawal syndrome: (3) Alcohol use disorder: This is a 54-year-old white male with major depressive disorder, alcohol use disorder and a significant genetic loading for addiction and mental health iss ues who presents depressed and wanting assistance with his addiction. 1. Continue current medication. except add doxepin 10 mg po qhs prn. 2. Continue every 15 minute checks for safety. 3. Encourage individual, group and milieu therapy. 4. Encourage sober living follow-up treatment at the highest level of care to which he is willing to commit. Involuntary Hold Information 96 Hour Hold: 96 Hour Involuntary Admission: No Attestations NPU Medical Necessity Statement*: Inpatient hospitalization is medically necessary and the clinically appropriate intervention at this time. We will monitor medications and make changes as indicated. Likely length of stay 1-3 days. Coding Level of Care Code Acute Informatics Specialist for Judy Jalloh
[2020-05-01] MEDS: nicotine 21 mg Patch 1 PATCH TRANSDERMA (16:16)
--- NOTE | 2020-05-01 16:20 | PC.NURSE ---
PRN IMODIUM 4 MG GIVEN PO PER PT C/O STATED LOOSE STOOLS.
[2020-05-01] MEDS: OLANZapine 5 mg ODT PO (20:40)
[2020-05-01] MEDS: trazodone 50 mg Tablet PO (20:40)
--- NOTE | 2020-05-01 20:42 | PC.NURSE ---
Prns given zyprexa zydis 5mg PO given for increased anxiety trazodone 50mg po to enable sleep visteril 50mg po given for anxiety
--- NOTE | 2020-05-01 21:35 | PC.NURSE ---
PRN follow up- patient has been watching television in the day room for the past hour, talking to another patient, smiles when talked to, and does not appear anxious at this time.
[2020-05-01 22:00] VITALS: BP 111/75; PULSE 101; RESP 18; TEMP 36.8; O2SAT 96
[2020-05-01] MEDS: doxepin 10 mg Capsule PO (22:11)
--- NOTE | 2020-05-01 22:11 | PC.NURSE ---
PRN Doxepin 10mg PO given due to no result in sleep progress from PRN Trazodone given an hour ago.
--- NOTE | 2020-05-01 23:01 | PC.NURSE ---
Nicotine patch removed.
[2020-05-02 06:00] VITALS: BP 119/72; PULSE 72; RESP 17; TEMP 36.7; O2SAT 94
[2020-05-02] MEDS: fluoxetine 20 mg Capsule 40 MG PO (09:23)
[2020-05-02] MEDS: multivitamin therapeutic Tablet 1 TAB PO (09:23)
[2020-05-02] MEDS: thiamine 100 mg Tablet PO (09:23)
[2020-05-02] MEDS: hyDROXYzine 25 mg Capsule 50 MG PO ×3 (09:23→21:25)
[2020-05-02] MEDS: folic acid 1 mg Tablet PO (09:24)
[2020-05-02] MEDS: loperamide 2 mg Capsule 4 MG PO ×3 (09:24→21:49)
--- NOTE | 2020-05-02 10:49 | PM.NPN ---
Subjective NPU Subjective: Interval history: Han presents today feeling much more optimistic about the situation. He reports that the medication is working fairly well though sleep is still coming at a premium. We discussed the fact that some people and does take a considerable amount of time before sleep gets recalibrated. He is feeling much better as far as withdrawal symptoms, denying any. He is now just awaiting response from this program and we discussed the possibility of discharge tomorrow. Mental Status Exam MSE Comments: This is an underweight white male with adequate dress, grooming and eye contact. No abnormal movements. Cooperative with exam in no acute distress. Speech was normal rate and volume. Mood described as pretty good, affect congruent Thought process organized. Thought content: Patient denied suicidal or homicidal ideation, he denied any auditory or visual examinations. There were no delusions reported or noted. Attention and concentration were intact and memory appeared reliable but none were formally tested. He is alert and oriented ?3. Insight and judgment appear fair, and improving. Impulse control is improving. Vitals/I&O/Wt Last Vital Signs Temp 98.1 F 05/02/20 06:00 Pulse 72 05/02/20 06:00 Resp 17 05/02/20 06:00 BP 119/72 05/02/20 06:00 Pulse Ox 94 05/02/20 06:00 Weight last 48 hrs Weight 79.095 kg Data NPU : 04/26/20 15:20 04/26/20 15:20 A&P Additional A&P Information (1) Major depressive disorder, single episode, unspecified: (2) Alcohol withdrawal syndrome: (3) Alcohol use disorder: This is a 54-year-old white male with major depressive disorder, alcohol use disorder and a significant genetic loading for addiction and mental health issues who presents depressed and wanting assistance with his addiction. 1. Continue current medication. except add doxepin 10 mg po qhs prn. 2. Continue every 15 minute checks for safety. 3. Encourage individual, group and milieu therapy. 4. Encourage sober living follow-up treatment at the highest level of care to which he is willing to commit. Involuntary Hold Information 96 Hour Hold: 96 Hour Involuntary Admission: No Attestations NPU Medical Necessity Statement*: Inpatient hospitalization is medically necessary and the clinically appropriate intervention at this time. We will monitor medications and make changes as indicated. Likely length of stay 1-2 days. Coding Level of Care Code Acute Director External Communications for Ahsang Yeimi
[2020-05-02 14:00] VITALS: BP 113/78; PULSE 109; RESP 18; TEMP 36.7; O2SAT 95
--- NOTE | 2020-05-02 15:39 | PC.NURSE ---
ALMA Hickman Patient stated he was anxious and requested medication.
[2020-05-02] MEDS: trazodone 50 mg Tablet PO (21:25)
[2020-05-02 22:00] VITALS: BP 124/86; PULSE 81; RESP 17; TEMP 36.8; O2SAT 96
--- NOTE | 2020-05-02 22:30 | PC.NURSE ---
pt given PRN meds imodium, hydroxyzine and trazodone per pt request.
--- NOTE | 2020-05-03 02:33 | PC.NURSE ---
Patient seems happy and is very talkative. He has spent several hours in the dayroom interacting with another patient and watching television. He went to bed earlier this evening and has not been out of bed
[2020-05-03 06:00] VITALS: BP 121/80; PULSE 76; RESP 19; TEMP 37; O2SAT 95
--- NOTE | 2020-05-03 06:18 | PC.NURSE ---
pt has slept very well this night. smiling big to being sang Happy Birthday when he woke up.
[2020-05-03] MEDS: loperamide 2 mg Capsule 4 MG PO ×3 (07:04→16:40)
[2020-05-03] MEDS: multivitamin therapeutic Tablet 1 TAB PO (07:41)
[2020-05-03] MEDS: hyDROXYzine 25 mg Capsule 50 MG PO ×3 (07:41→20:34)
[2020-05-03] MEDS: thiamine 100 mg Tablet PO (07:41)
[2020-05-03] MEDS: fluoxetine 20 mg Capsule 40 MG PO (07:41)
[2020-05-03] MEDS: folic acid 1 mg Tablet PO (07:41)
--- NOTE | 2020-05-03 07:41 | PC.NURSE ---
Addendum entered by Diane Loera LPN 05/03/20 08:48: MEDICATION EFFECTIVE. NO FURTHER C/O ANXIETY. Original Note: PRN VISTARIL VISTARIL 50MG PO PER PATIENT C/O ANXIETY. WILL CONTINUE TO MONITOR FOR MEDICATION EFFECTIVENESS.
[2020-05-03] MEDS: OLANZapine 5 mg ODT PO (13:20)
--- NOTE | 2020-05-03 13:24 | PC.NURSE ---
PRN Zyprexa given for pt c/o agitation. Pt reports he is angry bc he wants to go home and is being encouraged to stay
[2020-05-03 13:48] VITALS: BP 123/86; PULSE 78; RESP 18; TEMP 36.6; O2SAT 93
--- NOTE | 2020-05-03 14:09 | P.PN_ITS ---
Subjective NPU Subjective: Interval history: Han presented today excited about the fact that he had been accepted at [facility]. Unfortunately he does have paperwork he was served for a PFA with court at 9 AM tomorrow morning.His father is the complaintant refill is critical for him to represent himself because of his line of work and not wanting to get some kind of violent record on his record. We discussed the situation with this treatment Team and [employer] and we discussed the risks benefits And alternatives of discharging him tomorrow with arrangements to get him to the court house from the court house to the rehabilitation and he understood and agreed to proceed as is documented in his note. Mental Status Exam 2 MSE Comments: This is an underweight white male with adequate dress, grooming and eye contact. No abnormal movements. Cooperative with exam in no acute distress. Speech was normal rate and volume. Mood described as pretty good,But anxious about the future, affect congruent Thought process organized. Thought content: Patient denied suicidal or homicidal ideation, he denied any auditory or visual examinations. There were no delusions reported or noted. Attention and concentration were intact and memory appeared reliable but none were formally tested. He is alert and oriented ?3. Insight and judgment appear fair, and improving. Impulse control is improving. Vitals/I&O/Wt Last Vital Signs Temp 98.0 F 05/03/20 22:00 Pulse 84 05/03/20 22:00 Resp 17 05/03/20 22:00 BP 110/78 05/03/20 22:00 Pulse Ox 97 05/03/20 22:00 Weight last 48 hrs Weight 79.095 kg Data NPU : 04/26/20 15:20 04/26/20 15:20 A&P Additional A&P Information (1) Major depressive disorder, single episode, unspecified: (2) Alcohol withdrawal syndrome: (3) Alcohol use disorder: This is a 54-year-old white male with major depressive disorder, alcohol use disorder and a significant genetic loading for addiction and mental health issues who presents depressed and wanting assistance with his addiction. 1. Continue current medication. 2. Continue every 15 minute checks for safety. 3. Encourage individual, group and milieu therapy. 4. Discharge to [facility] tomorrow Involuntary Hold Information 96 Hour Hold: 96 Hour Involuntary Admission: No Attestations NPU Medical Necessity Statement*: Inpatient hospitalization is medically necessary and the clinically appropriate intervention at this time. We will monitor medications and make changes as indicated. Plan for discharge tomorrow. Coding Level of Care Code Acute Reception Interviewer for Judy Jalloh
[2020-05-03] MEDS: haloperidol 5 mg Tablet PO (18:38)
[2020-05-03] MEDS: trazodone 50 mg Tablet 100 MG PO (20:34)
[2020-05-03 22:00] VITALS: BP 110/78; PULSE 84; RESP 17; TEMP 36.7; O2SAT 97
--- NOTE | 2020-05-03 22:00 | PC.NURSE ---
PT GIVEN PRN SLEEP AND ANXIRTY MEDS PER REQUEST.
[2020-05-04 06:00] VITALS: BP 117/79; PULSE 82; RESP 17; TEMP 36.4; O2SAT 96
[2020-05-04] MEDS: loperamide 2 mg Capsule 4 MG PO (06:53)
[2020-05-04] MEDS: OLANZapine 5 mg ODT PO (06:55)
[2020-05-04] MEDS: fluoxetine 20 mg Capsule 40 MG PO (07:49)
[2020-05-04] MEDS: multivitamin therapeutic Tablet 1 TAB PO (07:50)
[2020-05-04] MEDS: thiamine 100 mg Tablet PO (07:50)
[2020-05-04] MEDS: folic acid 1 mg Tablet PO (07:50)
--- NOTE | 2020-05-04 07:51 | PM.NDC ---
Diagnoses at Discharge Discharge Diagnosis (1) Major depressive disorder, single episode, unspecified: Status: Acute (2) Alcohol withdrawal syndrome: Status: Resolved Problem details: Patient will have to be in recovery indefinitely. Qualifiers: Complication of substance-induced condition: uncomplicated Qualified Code(s): F10.230 - Alcohol dependence with withdrawal, uncomplicated (3) Alcohol use disorder: Status: Acute Reason for Visit Reason for Visit: detox Brief History: History of Present Illness Han Hummel is a 54 year old male who is a chronic alcoholic and drinks highballs all day, every day , according to him. However, he wants to sober up and would like some help. He quit cold turkey prior to coming in, his last drink being around 2 AM the morning he came to the ER. He has symptoms that he thinks are secondary to withdrawal, including tremors, nausea, vomiting, abdominal pain. He had a single episode of watery stools while in the emergency room. Hospital Course Hospital Course The patient presented to the emergency room reportedly as a chronic alcoholic who drinks fireball all day every day, according to him. He endorsed he wanted to quit alcohol and wanted some help with that. He endorsed having quit ?cold turkey? and his last drink was about twelve hours prior to being seen by the emergency room doctor. He denied withdrawal symptoms but was having tremors, nausea, vomiting and abdominal pain, and he had a single episode of watery stool. He endorsed wanting alcohol rehabilitation and treatment for his depression, and he was admitted to the neuropsychiatric unit for definitive treatment of those issues. On the unit, he slowly acclimated to the individual, group, and milieu therapies provided. He was started on Prozac and that was increased to 40 mg during the hospitalization. He was accepted at [facility] and we made arrangements for him to go to a court date tomorrow morning, followed by going to [facility] for definitive treatment of his addiction issues. He showed marked improvement. During the hospitalization, the patient had routine laboratory studies which were within normal limits, except for a few outliers. Additionally, the patient had a general medical evaluation which was within normal limits and revealed no new acute processes. Discharge Summary At the time of discharge the patient denied all lethality, was absent psychosis, and mood and anxiety were well managed. The patient endorsed a plan to avoid all drugs of abuse and to follow-up with outpatient services, as recommended. The patient was evaluated and deemed to be absent credible lethality, and had achieved the maximum benefit from an inpatient hospitalization, and so he was discharged. Involuntary Hold Information 96 Hour Hold: 96 Hour Involuntary Admission: No Mental Status Exam MSE Comments: This is a white male, with adequate dress, grooming, and eye contact. No abnormal movements. Cooperative with exam in no acute distress. Speech was normal rate and volume. Mood described as good; affect congruent. Thought process, organized. Thought content: patient denied any suicidal or homicidal ideation, there were no delusions reported or noted, patient denied any auditory or visual hallucinations. Attention, concentration, and memory appeared intact but none were formally tested. He is alert and oriented times three. Insight and judgment are good. Discharge Data Vitals: Last Vital Signs Temp 97.6 F 05/04/20 06:00 Pulse 82 05/04/20 06:00 Resp 17 05/04/20 06:00 BP 117/79 05/04/20 06:00 Pulse Ox 96 05/04/20 06:00 Discharge Plan Discharge Patient Disposition: Home Condition: Stable Prescriptions: New trazodone 50 mg Tablet 100 mg PO BEDTIME PRN (Reason: Insomnia) 30 Days Qty: 60 RF: 1 doxepin 10 mg Capsule 10 mg PO BEDTIME PRN (Reason: Insomnia) 30 Days Qty: 30 RF: 1 fluoxetine 20 mg Capsule 40 mg PO DAILY 30 Days Qty: 60 RF: 1 Vitamin B-1 (mononitrate) 100 mg Tablet 100 mg PO DAILY 30 Days Qty: 30 RF: 1 Continued ibuprofen 200 mg Tablet 600 mg PO PRN RF: 0 Discharge Orders: Discharge Order (Routine); Ordered 05/04/20 Ordered By: Guero Martin Referrals: [facility] [Other] (Joo Melgar confirmed the acceptance at [facility] for their [facility]. This is where you are going for your treatment and housing. ) [facility] in [place], [place] [Other] (call and request initial intake for outpatient mental health services. If they cannot serve you for some reason, be sure to ask where you can follow-up. It is important that you get linked to an outpatient provider as soon as possible, in order to have continuity of care. ) Discharge Diet: Regular Discharge Activity: Resume usual activity Patient Instructions: Alcoholism, Doxepin (By mouth), Fluoxetine (By mouth), Trazodone (By mouth), Vitamin B Complex (By mouth), Anxiety (DC) Discharge Date/Time: 05/04/20 08:25 Discharge Attestations NPU Time Spent in Discharge Care*: less than 30 min Specific Discharge Activities: Specific discharge activities: educating patient, discussing with insurance case manager/social workers/dc planners, documenting/other paperwork and evaluating patient/reviewing data Coding Level of Care Code Acute Natural Resource Manager for [facility] Fwd Diagnoses Major depressive disorder, single episode, unspecified F32.9 Alcohol withdrawal syndrome F10.230 Complication of substance-induced condition: uncomplicated Alcohol use disorder
[2020-05-04 07:56] VITALS: BP 117/79; PULSE 82; RESP 17; TEMP 36.4; O2SAT 96
== END 2020-05-04 08:25 | disposition home or self-care (01) | DRG 897 ==
LOC: ER 14:28 → NP 18:13
PROVIDERS: Family Medicine; Visit Provider Psychiatry & Neurology Psychiatry
DX: F10.229 Alcohol dependence with intoxication, unspecified (principal); F32.9 Major depressive disorder, single episode, unspecified; F10.239 Alcohol dependence with withdrawal, unspecified
CPT/HCPCS: 12345; 80053; 80306; 80307; 81001; 83690; 85025; 87086; 96372; 99285; J3411; J3490; J7030